=== PATIENT | male | born 1980 | race Hispanic/Latino ===

== ENCOUNTER 2020-07-14 09:09 | Outpatient (CLI) | payer BC ==
--- NOTE | 2020-07-15 11:18 | Treadmill Report ---
STRESS EKG REPORT A stress EKG being performed on 39-year-old gentleman with atypical chest pain. Baseline EKG showed sinus rhythm within normal limits at rate of 77 beats per minute. The patient exercised for 11 minutes on standard Horacio protocol. He attained a maximal heart rate of 155 beats per minute, which is 86% of predicted maximal heart rate. Maximal systolic blood pressure was 149 mmHg and diastolic blood pressure of 89 mmHg. At the peak heart rate, EKG did not show any ST-T changes to suggest ischemia. No arrhythmia noted. The patient did not have any chest pain. FINAL IMPRESSION: 1. Very good exercise tolerance, exercised up to 11 minutes on standard Horacio protocol. 2. Appropriate blood pressure response. 3. No ischemic changes on the EKG. 4. No arrhythmia. The patient denied any chest pain throughout the procedure. JOB# [id number] BENJY/LORENA
== END 2020-07-14 09:10 | disposition home or self-care (01) ==
LOC: CARD 09:09
PROVIDERS: ATTEND Internal Medicine Cardiovascular Disease
DX: R07.2 Precordial pain (principal)
CPT/HCPCS: 93017